=== PATIENT | female | born 1975 | race American Indian/Alaskan Native ===

== ENCOUNTER 2020-01-10 14:02 | Emergency (ER) | payer OTHER, SELFPAY ==
[~2020-01-10] VITALS: Ht 170.2 cm; Wt 70.0 kg
[2020-01-10 14:34] VITALS: BP 164/87
== END 2020-01-10 16:00 | disposition home or self-care (01) ==
LOC: ER 14:02
DX: Z03.818 Encounter for observation for suspected exposure to other biological agents ruled out (principal); Z00.00 Encounter for general adult medical examination without abnormal findings
CPT/HCPCS: 87635; 99283; C9803; 99281